=== PATIENT | female | born 1980 | race Caucasian/White ===

== ENCOUNTER 2016-06-11 14:01 | Outpatient (CLI) | payer MEDICARE, MEDICAID | END 2016-06-11 14:02 | disposition home or self-care (01) | DX: F33.2 Major depressive disorder, recurrent severe without psychotic features (principal) ==

== ENCOUNTER 2016-06-23 10:17 | Outpatient (CLI) | payer MEDICARE, MEDICAID | END 2016-06-23 10:18 | disposition home or self-care (01) | DX: E66.9 Obesity, unspecified (principal); E55.9 Vitamin D deficiency, unspecified; R73.01 Impaired fasting glucose; D68.61 Antiphospholipid syndrome ==

== ENCOUNTER 2017-01-13 08:35 | Emergency (ER) | payer MEDICARE, MEDICAID ==
[2017-01-13 08:47] VITALS: BP 132/93
[2017-01-13] MEDS ORDERED: DEXAMETHASONE 10 MG/ML VIAL PO STA (08:51)
[2017-01-13] MEDS ORDERED: CETIRIZINE 10 MG TABLET PO STA (08:53)
--- NOTE | 2017-01-13 08:56 | ED Physician Documentation ---
History of Present Illness - Stated complaint Stated Complaint: RASH - Chief complaint Chief Complaint: Wound - Additonal information Additional information: hx from pt 36 f rash X 2 days possibly 2/2 new lotion or trying a caramel moch for first time no new meds no contacts with same no travel no camping no insect bites no fever CRAFT cough NVD etc no oral swelling denies preg Review of Systems Constitutional: denies: Fever, Chills Throat: denies: Oral lesions / sores Respiratory: denies: Cough GI: denies: Vomiting Skin: reports: Rash Neurologic: denies: Headache Immunocompromised: denies: Immunocompromised PD PAST MEDICAL HISTORY - Past Medical History Cardiovascular: Other Respiratory: Other Neuro: Headache/migraine Endocrine/Autoimmune: None GI: None 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 : None HEENT: None Psych: Panic attacks Musculoskeletal: Fibromyalgia Derm: None - Past Surgical History Past Surgical History: Yes /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: section, Tubal ligation HEENT: Other Derm: Other - Present Medications Home Medications: Ambulatory Orders Medication Instructions Recorded Confirmed Baclofen 5 - 20 mg PO QPM 07/02/15 08/27/15 Escitalopram Oxalate [Lexapro] 20 mg PO DAILY 07/02/15 08/27/15 Ibuprofen 800 mg PO QID PRN 07/02/15 08/27/15 Trazodone HCl 200 mg PO QPM 07/02/15 08/27/15 Zonisamide 50 mg PO BID 07/02/15 08/27/15 HYDROmorphone [Dilaudid] 1 - 2 tab PO Q4-6H PRN #15 tablet 08/27/15 Cetirizine [ZyrTEC] 10 mg PO DAILY PRN #3 tablet 01/13/17 predniSONE [Deltasone] 40 mg PO DAILY 3 Days 01/13/17 - Allergies Allergies/Adverse Reactions: Allergies Allergy/AdvReac Type Severity Reaction Status Date / Time latex Allergy Rash Verified 07/02/15 13:40 Sulfa (Sulfonamide Allergy Rash Verified 07/02/15 13:40 Antibiotics) Penicillins AdvReac Emesis Verified 07/02/15 13:40 - Social History Does the pt smoke?: Yes Smoking Status: Light tobacco smoker Does the pt drink ETOH?: No Does the pt have substance abuse?: No - Immunizations Immunizations are current?: Yes - POLST Patient has POLST: No PD ED PE NORMAL - Vitals Vital signs reviewed: Yes - HEENT HEENT: Moist mucous membranes, Other (no swelling or oral lesions) - Neck Neck: Supple, no meningeal sign - Cardiac Cardiac: RRR - Respiratory Respiratory: No respiratory distress, Clear bilaterally - Abdomen Abdomen: Soft, Non tender - Derm Derm: Other (pink raised lesions with slight ring of clearing diffusely except for palms, no petecchiae purpura target lesions vesicles) - Neuro Neuro: Alert and oriented X 3 Results - Vitals Vitals: Vital Signs - 24 hr 01/13/17 08:46 Temperature 36.2 C L Heart Rate 88 Respiratory 16 Rate Blood Pressure 132/93 H O2 Saturation 98 Oxygen O2 Source Room air PD MEDICAL DECISION MAKING - ED course ED course: most c/w an allergic rxn leslie tx symptomatically Departure - Departure Disposition: 01 Home, Self Care Clinical Impression: Rash Condition: Good Instructions: ED Allergic Reaction General Other Follow-Up: Hipolito Vázquez MD [Primary Care Provider] - Prescriptions: predniSONE [Deltasone] 40 mg PO DAILY 3 Days Cetirizine [ZyrTEC] 10 mg PO DAILY PRN #3 tablet PRN Reason: allergic reaction
[2017-01-13] MEDS ORDERED: DEXAMETHASONE 10 MG/ML VIAL ONE (09:06)
[2017-01-13] MEDS ORDERED: CETIRIZINE 10 MG TABLET ONE (09:06)
== END 2017-01-13 09:14 | disposition home or self-care (01) ==
LOC: ED 08:35
DX: R21 Rash and other nonspecific skin eruption (principal); M79.7 Fibromyalgia; F17.200 Nicotine dependence, unspecified, uncomplicated
CPT/HCPCS: 99283; A9270

== ENCOUNTER 2017-08-18 08:45 | Emergency (ER) | payer MEDICARE, MEDICAID ==
[2017-08-18 09:00] VITALS: BP 133/85
[2017-08-18] MEDS ORDERED: ACYCLOVIR 200 MG CAPSULE PO STA (09:15)
--- NOTE | 2017-08-18 09:21 | ED Physician Documentation ---
PD HPI SKIN - Stated complaint Stated Complaint: RASH - Chief complaint Chief Complaint: Wound - History obtained from History obtained from: Patient - History of Present Illness Timing - onset: How many days ago (3) Timing - details: Gradual onset Location: LUE Quality / character: Painful, Vesicular Similar symptoms before: Has not had sx before - Additional information Additional information: The patient is a 37-year-old female who presents with vesicular rash involving her left upper extremity. Her rash started 2 or 3 days ago, after she was exposed to a friend who had similar rash. She denies headache, cough, or fatigue. She has no history of similar rash in the past. 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 : None HEENT: None Psych: Panic attacks Musculoskeletal: Fibromyalgia Derm: None Other Past Medical History: autophospholipid antibody syndrome - Past Surgical History Past Surgical History: Yes /TRUMPET PLAYER: section, Tubal ligation HEENT: Other Derm: Other - Present Medications Home Medications: Ambulatory Orders Medication Instructions Recorded Confirmed Acyclovir 200 mg PO 5XD #50 capsule 08/18/17 - Allergies Allergies/Adverse Reactions: Allergies Allergy/AdvReac Type Severity Reaction Status Date / Time latex Allergy Rash Verified 08/18/17 09:00 Sulfa (Sulfonamide Allergy Rash Verified 08/18/17 09:00 Antibiotics) Penicillins AdvReac Emesis Verified 08/18/17 09:00 - Social History Does the pt smoke?: No Smoking Status: Never smoker Does the pt drink ETOH?: No Does the pt have substance abuse?: No Substance Use and Type: Other - Immunizations Immunizations are current?: Yes - POLST Patient has POLST: No PD ED PE NORMAL - Vitals Vital signs reviewed: Yes (Borderline hypertension initially.) - General General: Alert and oriented X 3, Well developed/nourished - HEENT HEENT: Atraumatic, EOMI, Pharynx benign - Neck Neck: Supple, no meningeal sign, No adenopathy - Cardiac Cardiac: RRR - Respiratory Respiratory: No respiratory distress, Clear bilaterally - Abdomen Abdomen: Soft, Non tender - Back Back: No CVA TTP - Derm Derm: Other (Scattered vesicles on the left upper extremity.) - Extremities Extremities: No edema, No calf tenderness / cord - Neuro Neuro: Alert and oriented X 3, No motor deficit, No sensory deficit Results - Vitals Vitals: Oxygen O2 Source Room air PD MEDICAL DECISION MAKING - ED course Complexity details: re-evaluated patient, considered differential, d/w patient, d/w family ED course: The patient's presentation is most consistent with herpes zoster. Her vesicular rash is located in a dermatomal pattern. She is otherwise asymptomatic. A swab of one of the vesicles was sent the lab in viral culture. The results are pending. Treatment in the emergency department included administration of acyclovir 200 mg orally. She is being discharged with prescription for acyclovir. I discussed with her and her partner the likely diagnosis, expected course of illness, treatment and outpatient follow-up, as well as potentially worrisome signs or symptoms that should prompt reevaluation in the emergency department. Departure - Departure Disposition: 01 Home, Self Care Clinical Impression: Herpes zoster Qualifiers: Herpes zoster complications: without complications Qualified Code(s): B02.9 - Zoster without complications Condition: Stable Instructions: ED Shingles Prescriptions: Acyclovir 200 mg PO 5XD #50 capsule Comments: Take acyclovir 5 times daily as prescribed. You can use Benadryl if needed for itching. You can use ibuprofen, up to 800 mg 3 times daily if needed for discomfort. Follow up with your primary physician within 2 weeks. Call to schedule appointment. Return to the emergency department if you develop increasing pain, swelling, or otherwise worsening symptoms. Discharge Date/Time: 08/18/17 09:26
== END 2017-08-18 09:26 | disposition home or self-care (01) ==
LOC: ED 08:45
DX: B02.9 Zoster without complications (principal)
CPT/HCPCS: 87252; 99283; A9270

== ENCOUNTER 2018-02-21 19:00 | Emergency (ER) | payer MEDICARE, MEDICAID ==
--- NOTE | 2018-02-21 20:36 | ED Physician Documentation ---
PD HPI URI - Stated complaint Stated Complaint: CONGESTION - Chief complaint Chief Complaint: Resp - History obtained from History obtained from: Patient - History of Present Illness Timing - onset: How many days ago (9) Timing details: Gradual onset Associated symptoms: Chills, Sweats, Nasal congestion, Productive cough Recently seen: Clinic (evaluated by PMD last week , put on an antibiotic (does not recall name, but she says she took two tablets day 1, 1 tablet for next four days, thus this was likely azithromycin). also rx codeine cough medication. also taking mucinex, robitussin, hu seltzer cough/cold. she presents to ED at this time due to ongoing cough symptoms which have gradually worsened.) Review of Systems Constitutional: reports: Chills, Sweats. denies: Fever (subjective (did not take temperature at home)) Throat: denies: Sore throat Cardiac: reports: Reviewed and negative Respiratory: reports: Cough. 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 : None HEENT: None Psych: Panic attacks Musculoskeletal: Fibromyalgia Derm: None - Past Surgical History Past Surgical History: Yes /ROCK WOOL INSULATOR: section, Tubal ligation HEENT: Other Derm: Other - Present Medications Home Medications: Ambulatory Orders Medication Instructions Recorded Confirmed Escitalopram Oxalate [Lexapro] 40 mg pe 02/21/18 Hydrocodone/Chlorphen P-Stirex 5 ml PO BID PRN #60 nirmal.er.12h 02/21/18 [Hydrocodone-Chlorphen ER Susp] predniSONE [Prednisone] 40 mg PO DAILY #6 tablet 02/21/18 traZODone [Desyrel] 50 mg 02/21/18 - Allergies Allergies/Adverse Reactions: Allergies Allergy/AdvReac Type Severity Reaction Status Date / Time latex Allergy Rash Verified 08/18/17 09:00 Sulfa (Sulfonamide Allergy Rash Verified 08/18/17 09:00 Antibiotics) Penicillins AdvReac Emesis Verified 02/21/18 19:07 - Social History Does the pt smoke?: No Smoking Status: Never smoker Does the pt drink ETOH?: No Does the pt have substance abuse?: No - Immunizations Immunizations are current?: Yes - POLST Patient has POLST: No PD ED PE NORMAL - Vitals Vital signs reviewed: Yes - General General: Alert and oriented X 3, No acute distress, Well developed/nourished - HEENT HEENT: Moist mucous membranes, Pharynx benign - Neck Neck: Supple, no meningeal sign - Cardiac Cardiac: RRR, No murmur - Respiratory Respiratory: No respiratory distress, Clear bilaterally Results - Vitals Vitals: Vital Signs - 24 hr 02/21/18 02/21/18 19:02 22:08 Temperature 36.6 C Heart Rate 102 H 94 Respiratory 18 20 Rate Blood Pressure 140/91 H 133/71 H O2 Saturation 98 98 Oxygen O2 Source Room air - Rads (name of study) chest xray Radiology: Prelim report reviewed, See rad report PD MEDICAL DECISION MAKING - ED course Complexity details: reviewed results, re-evaluated patient, considered differential, d/w patient Departure - Departure Disposition: 01 Home, Self Care Clinical Impression: Bronchitis Condition: Good Instructions: ED Upper Resp Infec No Abx Tx Follow-Up: RENATA GREWAL [Primary Care Provider] - Within 1 week Prescriptions: Hydrocodone/Chlorphen P-Stirex [Hydrocodone-Chlorphen ER Susp] 5 ml PO BID PRN #60 nirmal.er.12h PRN Reason: Cough predniSONE [Prednisone] 40 mg PO DAILY #6 tablet Discharge Date/Time: 02/21/18 22:09
--- NOTE | 2018-02-21 21:43 | XRAY Report ---
Reason: cough Procedure Date: 02/21/2018 Accession Number: [id number] / [id number] Procedure: XR - Chest 2 View X-Ray CPT Code: 31652 FULL RESULT: EXAM: CHEST RADIOGRAPHY EXAM DATE: 02/21/2018 09:22 PM. CLINICAL HISTORY: Cough. COMPARISON: CHEST 2 VIEW PA/LAT 08/27/2015 3:36 PM. TECHNIQUE: 2 views. FINDINGS: Lungs/Pleura: Lung volumes within normal limits. Stable mild perihilar opacity. No evidence of lobar consolidation or effusion. No pneumothorax. Mediastinum: Borderline cardiomegaly. Other: None. IMPRESSION: 1. Lung volumes within normal limits. Borderline cardiomegaly. 2. No evidence of lobar infiltrate or effusion. 3. No pneumothorax. RADIA
[2018-02-21] MEDS ORDERED: predniSONE 20 MG TABLET PO STA (21:55)
[2018-02-21 22:09] VITALS: BP 133/71
== END 2018-02-21 22:09 | disposition home or self-care (01) ==
LOC: ED 19:00
DX: J40 Bronchitis, not specified as acute or chronic (principal)
CPT/HCPCS: 71046; 99283; J7512

== ENCOUNTER 2018-07-20 21:45 | Emergency (ER) | payer MEDICARE, MEDICAID ==
[2018-07-20 22:06] LABS: BILIRUBIN,URINE NEGATIVE (NEGATIVE); GLUCOSE, URINE (UA) NEGATIVE (NEGATIVE); KETONES,URINE (UA) NEGATIVE (NEGATIVE); LEUKOCYTE ESTERASE, URINE SMALL (NEGATIVE); NITRITE,URINE NEGATIVE (NEGATIVE); OCCULT BLOOD,URINE LARGE (NEGATIVE); PROTEIN,URINE 100 mg/dL (NEGATIVE); UROBILINOGEN,URINE 0.2 (NORMAL) E.U./dL (NORMAL)
[2018-07-20 22:07] LABS: CLARITY,URINE CLOUDY (CLEAR)
[2018-07-20 22:14] LABS: BACTERIA,URINE Rare /HPF (None Seen); RBC,URINE TNTC /HPF (0-5); SQUAMOUS EPITHELIAL CELL,UR NONE SEEN (<= Few)
[2018-07-20] MEDS ORDERED: PHENAZOPYRIDINE 100 MG TABLET PO STA (23:15)
[2018-07-20] MEDS ORDERED: cephALEXin 250 MG CAPSULE PO STA (23:15)
--- NOTE | 2018-07-20 23:29 | ED Physician Documentation ---
PD HPI FEMALE - Stated complaint Stated Complaint: FEMALE - Chief complaint Chief Complaint: UTI - History obtained from History obtained from: Patient - History of Present Illness Timing - onset: Yesterday Timing - duration: Days Timing - details: Abrupt onset, Still present Associated symptoms: Dysuria, Urinary frequency. No: Fever, Back pain, Vaginal discharge, Genital sore/lesion Contributing factors: No: Exposed to STD Similar symptoms before: Has not had sx before Review of Systems Constitutional: denies: Fever, Chills : reports: Dysuria, Frequency. 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 : None HEENT: None Psych: Depression, Panic attacks, Post traumatic stress disorder Musculoskeletal: Fibromyalgia Derm: None - Past Surgical History Past Surgical History: Yes /SENIOR SOFTWARE QUALITY ENGINEER: section, Tubal ligation, Hysterectomy HEENT: Other Derm: Other - Present Medications Home Medications: Ambulatory Orders Medication Instructions Recorded Confirmed Escitalopram Oxalate [Lexapro] 40 mg pe 02/21/18 Hydrocodone/Chlorphen P-Stirex 5 ml PO BID PRN #60 nirmal.er.12h 02/21/18 [Hydrocodone-Chlorphen ER Susp] predniSONE [Prednisone] 40 mg PO DAILY #6 tablet 02/21/18 traZODone [Desyrel] 50 mg 02/21/18 Cephalexin [Keflex] 500 mg PO TID #18 capsule 07/20/18 Phenazopyridine HCl [Pyridium] 200 mg PO TID PRN #6 tablet 07/20/18 - Allergies Allergies/Adverse Reactions: Allergies Allergy/AdvReac Type Severity Reaction Status Date / Time latex Allergy Rash Verified 07/20/18 21:53 Sulfa (Sulfonamide Allergy Rash Verified 07/20/18 21:53 Antibiotics) Penicillins AdvReac Emesis Verified 07/20/18 21:53 - Social History Does the pt smoke?: Yes Smoking Status: Current every day smoker Does the pt drink ETOH?: Yes Does the pt have substance abuse?: No Substance Use and Type: Marijuana - Immunizations Immunizations are current?: Yes - POLST Patient has POLST: No PD ED PE NORMAL - Vitals Vital signs reviewed: Yes - General General: Alert and oriented X 3, No acute distress, Well developed/nourished - Abdomen Abdomen: Soft, Non tender - Female Female : Deferred - Back Back: No CVA TTP - Derm Derm: Normal color, Warm and dry - Neuro Neuro: Alert and oriented X 3, No motor deficit, Normal speech Results - Vitals Vitals: Oxygen O2 Source Room air - Labs Labs: Microbiology 07/20/18 21:54 Urine Culture - Final Urine,Random 10-50,000 COLONIES/ML Polymicrobial growth including potential pathogens. This is suggestive of skin or other contamination. Laboratory Tests 07/20/18 21:54 Urine Color YELLOW Urine Clarity CLOUDY Urine pH 5.0 Ur Specific [place] >=1.030 H Urine Protein 100 H Urine Glucose (UA) NEGATIVE Urine Ketones NEGATIVE Urine Occult Blood LARGE H Urine Nitrite NEGATIVE Urine Bilirubin NEGATIVE Urine Urobilinogen 0.2 (NORMAL) Ur Leukocyte Esterase SMALL H Urine RBC TNTC H Urine WBC >25 H Ur Squamous Epith Cells NONE SEEN Urine Bacteria Rare Ur Microscopic Review INDICATED Urine Culture Comments INDICATED PD MEDICAL DECISION MAKING - ED course Complexity details: considered differential, d/w patient Departure - Departure Disposition: Home, Self Care Clinical Impression: Dysuria Urinary tract infection Qualifiers: Urinary tract infection type: acute cystitis Hematuria presence: with hematuria Qualified Code(s): N30.01 - Acute cystitis with hematuria Condition: Stable Record reviewed to determine appropriate education?: Yes Instructions: ED UTI Cystitis Female Follow-Up: RENATA GREWAL [Primary Care Provider] - Prescriptions: Cephalexin [Keflex] 500 mg PO TID #18 capsule Phenazopyridine HCl [Pyridium] 200 mg PO TID PRN #6 tablet PRN Reason: dysuria Comments: Stay well-hydrated. Drink lots of fluids. Tylenol or ibuprofen if needed for fevers or mild pains. Phenazopyridine can help with the urinary discomfort. Cephalexin antibiotic as directed. Recheck if not improved over the next couple of days. Return if worsening. Discharge Date/Time: 07/20/18 23:39
[2018-07-20 23:38] VITALS: BP 108/66
== END 2018-07-20 23:39 | disposition home or self-care (01) ==
LOC: ED 21:45
DX: N30.01 Acute cystitis with hematuria (principal); F17.200 Nicotine dependence, unspecified, uncomplicated
CPT/HCPCS: 81001; 87086; 99283; A9270; 81003

== ENCOUNTER 2019-01-08 16:08 | Emergency (ER) | payer MEDICARE, MEDICAID ==
[2019-01-08 16:18] VITALS: BP 129/96
[2019-01-08] MEDS ORDERED: cefTRIAXone 1 GM VIAL IM STA (16:32)
[2019-01-08] MEDS ORDERED: LIDOCAINE 1% 2 ML VIAL MC ONE (16:32)
[2019-01-08] MEDS ORDERED: FLUCONAZOLE 100 MG TABLET PO STA (16:33)
--- NOTE | 2019-01-08 16:33 | ED Physician Documentation ---
History of Present Illness - Stated complaint Stated Complaint: FEMALE - Chief complaint Chief Complaint: Abd Pain - History obtained from History obtained from: Patient - History of Present Illness Timing: How many days ago (3) Pain level max: 5 Pain level now: 5 - Additonal information Additional information: 38-year-old female presents to the emergency department complaining of pain to the right labia. States it is swollen. Concerned about possible abscess. Has been on Keflex for UTI. Nothing makes it better. 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 : None HEENT: None Psych: Depression, Panic attacks, Post traumatic stress disorder Musculoskeletal: Fibromyalgia Derm: None - Past Surgical History Past Surgical History: Yes /REFINISHER: section, Tubal ligation, Hysterectomy HEENT: Other Derm: Other - Present Medications Home Medications: Ambulatory Orders Medication Instructions Recorded Confirmed Escitalopram Oxalate [Lexapro] 40 mg pe PO DAILY 02/21/18 01/08/19 Cephalexin [Keflex] 500 mg PO TID #18 capsule 07/20/18 01/08/19 Atomoxetine HCl 40 mg PO DAILY 01/08/19 01/08/19 Clindamycin HCl [Clindamycin 300MG 300 mg PO Q6H #40 capsule 01/08/19 CAP] Ondansetron [Ondansetron Odt] 4 mg PO DAILY 01/08/19 01/08/19 - Allergies Allergies/Adverse Reactions: Allergies Allergy/AdvReac Type Severity Reaction Status Date / Time latex Allergy Rash Verified 01/08/19 16:18 Sulfa (Sulfonamide Allergy Rash Verified 01/08/19 16:18 Antibiotics) Penicillins AdvReac Emesis Verified 01/08/19 16:18 - Social History Does the pt smoke?: Yes Smoking Status: Current every day smoker Does the pt drink ETOH?: Yes Does the pt have substance abuse?: Yes Substance Use and Type: Marijuana - Immunizations Immunizations are current?: Yes - POLST Patient has POLST: No PD ED PE NORMAL - Vitals Vital signs reviewed: Yes - General General: Alert and oriented X 3, No acute distress - HEENT HEENT: Moist mucous membranes - Abdomen Abdomen: Soft, Non tender, Non distended - Female Female : Other (R labia - mildly inflammed. No induration. No fluctuance. This is on the superior aspect.) - Derm Derm: Warm and dry - Neuro Neuro: Alert and oriented X 3 - Psych Psych: Normal mood, Normal affect Results - Vitals Vitals: Vital Signs - 24 hr 01/08/19 16:15 Temperature 36.4 C L Heart Rate 92 Respiratory 19 Rate Blood Pressure 129/96 H O2 Saturation 100 Oxygen O2 Source Room air PD MEDICAL DECISION MAKING - ED course Complexity details: considered differential, d/w patient ED course: 38-year-old female with what appears to be a labial cellulitis. No susan abscess at this time. Is not near the Bartholin's gland. Will change her antibiotics to clindamycin. We will see if this improves her symptoms. We will have her follow-up closely with her doctor for further care. Patient counseled regarding signs and symptoms for which I believe and urgent re-evaluation would be necessary. Patient with good understanding of and agreement to plan and is comfortable going home at this time This document was made in part using voice recognition software. While efforts are made to proofread this document, sound alike and grammatical errors may occur. Patient also requested a dose of Diflucan for a yeast infection. This was given. Departure - Departure Disposition: 01 Home, Self Care Clinical Impression: Cellulitis of labia Condition: Good Instructions: ED Infec Skin Cellulitis Follow-Up: RENATA GREWAL [Primary Care Provider] - Within 3 Days Prescriptions: Clindamycin HCl [Clindamycin 300MG CAP] 300 mg PO Q6H #40 capsule Comments: Take all antibiotics until gone. Return if you worsen. Follow-up with your doctor for further care.
== END 2019-01-08 17:05 | disposition home or self-care (01) ==
LOC: ED 16:08
DX: N76.2 Acute vulvitis (principal); F17.200 Nicotine dependence, unspecified, uncomplicated
CPT/HCPCS: 96372; 99283; 99284; A9270

== ENCOUNTER 2021-02-15 15:14 | Emergency (ER) | payer MEDICARE, MEDICAID ==
[2021-02-15] MEDS ORDERED: TETANUS/DIPHTHERIA/PERTUSSIS 0.5 ML SYRINGE IM ONE (16:43)
--- NOTE | 2021-02-15 16:44 | ED Physician Documentation ---
PD HPI SKIN - Stated complaint Stated Complaint: LT FINGER LAC - Chief complaint Chief Complaint: Laceration - Additional information Additional information: Pt cut left index finger on a knife while cooking today. No other injuries. She thinks td was about 15 years ago. 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, Tubal ligation, Hysterectomy HEENT: Other Derm: Other - Present Medications Home Medications: Ambulatory Orders Medication Instructions Recorded Confirmed Escitalopram Oxalate [Lexapro] 40 mg pe PO DAILY 02/21/18 01/08/19 cephALEXin [Keflex] 500 mg PO TID #18 capsule 07/20/18 01/08/19 Atomoxetine HCl 40 mg PO DAILY 01/08/19 01/08/19 Clindamycin HCl [Clindamycin 300MG 300 mg PO Q6H #40 capsule 01/08/19 CAP] Ondansetron [Ondansetron Odt] 4 mg PO DAILY 01/08/19 01/08/19 - Allergies Allergies/Adverse Reactions: Allergies Allergy/AdvReac Type Severity Reaction Status Date / Time latex Allergy Rash Verified 02/15/21 15:22 Sulfa (Sulfonamide Allergy Rash Verified 02/15/21 15:22 Antibiotics) Penicillins AdvReac Emesis Verified 02/15/21 15:22 - Social History Does the pt smoke?: Yes Smoking Status: Current every day smoker Does the pt drink ETOH?: Yes Does the pt have substance abuse?: Yes - Immunizations Immunizations are current?: Yes - POLST Patient has POLST: No PD ED PE NORMAL - Vitals Vital signs reviewed: Yes - General General: Alert and oriented X 3, No acute distress, Well developed/nourished - Respiratory Respiratory: No respiratory distress - Derm Derm: Normal color, Warm and dry, Other (L-shaped flap on laceration on left index finger, abutting the nail but not including the nail or nailbed.) - Extremities Extremities: No deformity, No tenderness to palpate, Normal ROM s pain Results - Vitals Vitals: Vital Signs - 24 hr 02/15/21 15:17 Temperature 36.4 C L Heart Rate 87 Respiratory 14 Rate Blood Pressure 142/85 H O2 Saturation 95 Oxygen O2 Source Room air PD MEDICAL DECISION MAKING - ED course Complexity details: d/w patient ED course: Patient presented with a flap laceration of the left index finger. He did not require suture closure. We cleaned with normal saline and applied Dermabond with good approximation of wound edges. A dressing was applied. The patient received a Tdap as she did not receive one for approximately 15 years. She was counseled on home wound care and return instructions if there are signs infection such as redness, swelling, drainage or other new concerns Departure - Departure Disposition: 01 Home, Self Care Clinical Impression: Finger laceration Qualifiers: Encounter type: initial encounter Finger: index finger Damage to nail status: without damage Foreign body presence: without foreign body Laterality: left Qualified Code(s): S61.211A - Laceration without foreign body of left index finger without damage to nail, initial encounter Condition: Good Instructions: ED Laceration Ext Skin Glue Comments: You have a small laceration to your left index finger. Did not require sutures. I have cleaned and glued the skin, this glue will slowly dissipate over the next 3 to 5 days. You may keep the wound clean with soap and water, otherwise do not soak or acute it consistently. You can use a Band-Aid on the wound. Your tetanus shot was updated today.
[2021-02-15 17:09] VITALS: BP 148/87
== END 2021-02-15 17:08 | disposition home or self-care (01) ==
LOC: ED 15:14
DX: S61.211A Laceration without foreign body of left index finger without damage to nail, initial encounter (principal); W26.0XXA Contact with knife, initial encounter; Y93.G1 Activity, food preparation and clean up; F17.200 Nicotine dependence, unspecified, uncomplicated
CPT/HCPCS: 90471; 99282; 99283

== ENCOUNTER 2022-04-05 07:01 | Emergency (ER) | payer MEDICARE, MEDICAID ==
[2022-04-05 07:11] VITALS: BP 126/85
[2022-04-05 07:38] LABS: RAPID STREP SCREEN Negative (Negative)
[2022-04-05] MEDS ORDERED: DEXAMETHASONE 10 MG/ML VIAL PO STA (08:25)
[2022-04-05] MEDS ORDERED: CHERRY SYRUP 10 ML UDC PO ONE (08:25)
--- NOTE | 2022-04-05 08:27 | ED Physician Documentation ---
PD HPI URI - Stated complaint Stated Complaint: SOA/THROAT PX - Chief complaint Chief Complaint: Resp - History obtained from History obtained from: Patient - History of Present Illness Timing - onset: How many weeks ago (1) Timing duration: Days (7) Timing details: Gradual onset, Still present Associated symptoms: Nasal congestion, Rhinorrhea, Dry cough, Dyspnea. No: Fever Contributing factors: Sick contact Improves by: Rest Worsened by: Activity Similar symptoms before: Diagnosis (uri) Recently seen: Not recently seen - Additional information Additional information: 41-year-old Gretchen Ambrose has developed cough and congestion about 1 week ago. She has not had resolution of her symptoms and she has come into the emergency department today not feeling well. She is having some difficulty getting a full deep breath. She has not had fever. She has a sore throat and it hurts to cough. It hurts in her upper anterior chest. She has a history of antiphospholipid antibody and she has previously been on anticoagulation. She states that her breathing does not feel similar to what she had when she had pulmonary embolism. She feels that it is difficult to get a full deep breath. She is versed in the use of an inhaler. Review of Systems Constitutional: denies: Fever Ears: denies: Ear pain Nose: reports: Rhinorrhea / runny nose, Congestion Throat: reports: Sore throat Cardiac: denies: Chest pain / pressure, Palpitations Respiratory: reports: Dyspnea, Cough, Wheezing GI: denies: Abdominal Pain, Nausea, Vomiting, Constipation, Diarrhea : denies: Dysuria, Frequency PD PAST MEDICAL HISTORY - Past Medical History Cardiovascular: Other Respiratory: Other Neuro: None Endocrine/Autoimmune: None GI: None TESTER ELECTRONIC SCALE: None : None HEENT: None Psych: Depression, Panic attacks, Post traumatic stress disorder Musculoskeletal: Fibromyalgia Derm: None - Past Surgical History Past Surgical History: Yes /TESTER ELECTRONIC SCALE: section, Tubal ligation, Hysterectomy HEENT: Other Derm: Other - Present Medications Home Medications: Ambulatory Orders Medication Instructions Recorded Confirmed Escitalopram Oxalate [Lexapro] 40 mg pe PO DAILY 02/21/18 01/08/19 cephALEXin [Keflex] 500 mg PO TID #18 capsule 07/20/18 01/08/19 Atomoxetine HCl 40 mg PO DAILY 01/08/19 01/08/19 Clindamycin HCl [Clindamycin 300MG 300 mg PO Q6H #40 capsule 01/08/19 CAP] Ondansetron [Ondansetron Odt] 4 mg PO DAILY 01/08/19 01/08/19 Albuterol Sulf [Ventolin Hfa 1 - 2 puffs INH Q4HR PRN #1 each 04/05/22 Inhaler] - Allergies Allergies/Adverse Reactions: Allergies Allergy/AdvReac Type Severity Reaction Status Date / Time latex Allergy Rash Verified 02/15/21 15:22 Sulfa (Sulfonamide Allergy Rash Verified 02/15/21 15:22 Antibiotics) Penicillins AdvReac Emesis Verified 02/15/21 15:22 - Social History Does the pt smoke?: Yes Smoking Status: Current every day smoker Does the pt drink ETOH?: Yes Does the pt have substance abuse?: Yes - Immunizations Immunizations are current?: Yes - POLST Patient has POLST: No PD ED PE NORMAL - Vitals Vital signs reviewed: Yes (hypertensive mild) - General General: Alert and oriented X 3, No acute distress, Well developed/nourished - HEENT HEENT: Atraumatic, PERRL, EOMI, Ears normal, Moist mucous membranes, Other (minimal inflammation to the pharynx. 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, No motor deficit, No sensory deficit, Normal speech Eye Opening: Spontaneous Motor: Obeys Commands Verbal: Oriented GCS Score: 15 - Psych Psych: Normal mood, Normal affect Results - Vitals Vitals: Vital Signs - 24 hr 04/05/22 07:09 Temperature 37.1 C Heart Rate 85 Respiratory 18 Rate Blood Pressure 126/85 H O2 Saturation 98 Oxygen O2 Source Room air - Labs Labs: Laboratory Tests 04/05/22 07:13 Group A Strep Rapid Negative - Rads (name of study) chest 2 view Radiology: EMP read contemporaneously (No infiltrate, pleural effussion or cardiamegaly) PD MEDICAL DECISION MAKING - ED course Complexity details: reviewed old records, reviewed results, re-evaluated patient, considered differential, d/w patient ED course: 41-year-old female presents to the emergency department with a sore throat and a cough with difficulty getting a full deep breath. On examination she has some mild erythema to the pharynx and the remainder of exam is unremarkable with the exception of some light wheezes. A strep screen is negative for strep. Chest x-ray is without evidence of infiltrate. Viral URI is dominant in the community at this time and the patient is diagnosed with a viral URI and administered a dose of dexamethasone and we will give her a prescription for albuterol. Departure - Departure Disposition: Home, Self Care Clinical Impression: Viral URI with cough Condition: Stable Instructions: ED Bronchitis Asthmatic, ED URI Viral W Wheezing Follow-Up: Rivera Tenorio SR, MD [Primary Care Provider] - Prescriptions: Albuterol Sulf [Ventolin Hfa Inhaler] 1 - 2 puffs INH Q4HR PRN #1 each PRN Reason: Shortness Of Air/Wheezing Comments: Tea, today it looks you like you have a viral upper respiratory tract infection with some wheezing and we have given you a dose of dexamethasone which should help with your symptoms today. I have E scribed albuterol to the [facility] in [place]. The expectation is improvement today and continued improvement with resolution of your symptoms. Use of additional fluids and Tylenol for fever and aches are indicated.You may develop production of phlegm and worsening of symptoms. If this occurs that is likely a secondary infection and a visit to your primary care doctor is indicated. Today your strep screen was negative and a culture is pending. You may get a call from us if the culture is positive and this is usually 1-2 days for the culture. Forms: Activity restrictions
--- NOTE | 2022-04-05 08:33 | XRAY Report ---
PROCEDURE: Chest 2 View X-Ray INDICATIONS: cough TECHNIQUE: 2 views of the chest were acquired. COMPARISON: 02/13/2018 FINDINGS: Surgical changes and devices: None. Lungs and pleura: No pleural effusions or pneumothorax. Lungs are clear. Mediastinum: Mediastinal contours are normal. Heart size is normal. Bones and chest wall: No suspicious bony abnormalities. Soft tissues appear unremarkable. IMPRESSION: No acute process. Reviewed by: Mariola Freed MD on 04/05/2022 7:32 AM [facility] Approved by: Mariola Freed MD on 04/05/2022 7:32 AM [facility] Station ID: [id number]
== END 2022-04-05 08:44 | disposition home or self-care (01) ==
LOC: ED 07:01
DX: J06.9 Acute upper respiratory infection, unspecified (principal); R05.9 Cough, unspecified; F17.200 Nicotine dependence, unspecified, uncomplicated
CPT/HCPCS: 71046; 87070; 87430; 99282; 99284; A9270